=== PATIENT | female | born 1930 | race Caucasian/White ===

== ENCOUNTER → 2016-04-04 | Outpatient (REF) | payer MEDICARE, OTHER ==
[~2016-04-04] MED LIST: ALLO300T; ANEXIA; ASPI325T; BENI20TA11; CALCCHW12; HYDR25TA6; ISRADIPINE; JANUVIA; THERGRAN; TOPROL
== END | disposition home or self-care (01) ==
LOC: M LAB REF 16:30
PROVIDERS: ATTEND Nurse Practitioner Adult Health
DX: I12.9 Hypertensive chronic kidney disease with stage 1 through stage 4 chronic kidney disease, or unspecified chronic kidney disease (principal); D50.9 Iron deficiency anemia, unspecified

== ENCOUNTER → 2016-05-16 | Day surgery (SDC) | payer MEDICARE, OTHER ==
[~2016-05-16] VITALS: Ht 157.5 cm; Wt 74.8 kg
[~2016-05-16] MED LIST changes: +ALLO100T PO; +AMLO5TAB2 PO; +BSS with VANC/TOB/EPI for EYE CASES IR ONE; +CALCCHW19 PO; +CYCLOPENTOLATE 2% OPHTH SOLN XX ONE; +D5W/0.2% SODIUM CHLORIDE 250 ML IV SCH; +ECOT81TA5 PO; +HEALON DUET (HEALON 10MG/ML 0.55ML & HEALON ENDOCOAT 30MG/ML 0.85ML) As Ordered ONE; +HEALON DUET (HEALON 10MG/ML 0.55ML & HEALON ENDOCOAT 30MG/ML 0.85ML) XX ONE; +JANU100T PO; +LIDOCAINE 1% SDV 5 ML VIAL As Ordered ONE; +LIDOCAINE 1% SDV 5 ML VIAL XX ONE; +LIDOCAINE 4% INJ 5 ML AMP OU ONE; +LISI40TAB PO; +METO-207 PO; +MIDAZOLAM INJ 2 MG/2 ML VIAL (J2250) As Ordered ONE; +MOXIFLOXACIN IN BSS 0.25MG/0.25ML INTRACAMERAL INJ (OR EYE ONLY)(J2280) As Ordered ONE; +MOXIFLOXACIN IN BSS 0.25MG/0.25ML INTRACAMERAL INJ (OR EYE ONLY)(J2280) ICAM ONE; +OFLOXACIN 0.3 % (OCUFLOX) OPTH SOL 5ML XX ONE; +PHENYLEPHRINE 2.5% OPHTH SOL 2ML XX ONE; +POVIDONE-IODINE 5% OPHTH PREP SOL 30ML As Ordered ONE; +TRIAMCINOLONE PRES FR 40 MG/ML 1ML(TRIESENCE)(OR EYE ONLY)(J3300 PER 1MG) As Ordered ONE; +TRIAMCINOLONE PRES FR 40 MG/ML 1ML(TRIESENCE)(OR EYE ONLY)(J3300 PER 1MG) IO ONE; +TROPICAMIDE 1% OPHTH SOLN 2 ML XX ONE; +VITA400C29 PO; +fentaNYL 100 MCG/2 ML INJECTION (J3010) As Ordered ONE
[2016-05-16 14:00] VITALS: BP 191/109
--- NOTE | 2016-05-17 05:50 | RO ---
DATE OF PROCEDURE: 05/16/2016 PREPROCEDURE DIAGNOSIS: Cataract of left eye. POSTPROCEDURE DIAGNOSIS: Cataract of left eye. PROCEDURE: Femtosecond laser and phacoemulsification of the intraocular lens with lens implantation left eye. Intraocular lens power used was PCB00, 22 diopter. SURGEON: Micaela Perez MD STOCKROOM CLERK: None. ANESTHESIA: Local IV standby. FINDINGS: Cataract of left eye. COMPLICATIONS: None. DESCRIPTION OF PROCEDURE: The patient was brought to the operating room and laid in supine position. A lid speculum was placed, and patient was brought under the femtosecond laser. After the satisfactory placement of the patient interface, primary incision, secondary incision, and arcuate incisions with lens fragmentation was done without any complication per plan. The patients interface was then removed and lid speculum removed. Patient was placed under the microscope. The eye was prepped and draped in a sterile fashion for ophthalmic surgery. Lid speculum was placed. The secondary incision was opened, and EndoCoat was injected into the anterior chamber. The temporal clear corneal incision was then opened and capsulorrhexis removed, followed by hydrodissection. This was followed by phacoemulsification of the lens within the capsular bag. Cortical material was then aspirated, and Healon was injected into the capsular bag. Intraocular lens was then placed. Excess Healon was aspirated. Wound was hydrated. The lid speculum was removed, and patient was returned to the recovery room in stable condition.
== END | disposition home or self-care (01) ==
LOC: M SDC 10:59
PROVIDERS: ATTEND Ophthalmology
DX: H26.9 Unspecified cataract (principal); I12.9 Hypertensive chronic kidney disease with stage 1 through stage 4 chronic kidney disease, or unspecified chronic kidney disease; N18.3 Chronic kidney disease, stage 3 (moderate); M10.9 Gout, unspecified; D50.9 Iron deficiency anemia, unspecified; R73.01 Impaired fasting glucose; M81.0 Age-related osteoporosis without current pathological fracture; Z87.820 Personal history of traumatic brain injury; Z87.891 Personal history of nicotine dependence; Z79.899 Other long term (current) drug therapy
CPT/HCPCS: 66984; J2250; J2280; J3010; J3300; V2632

== ENCOUNTER → 2016-05-23 | Day surgery (SDC) | payer MEDICARE, OTHER ==
[~2016-05-23] VITALS: Ht 157.5 cm; Wt 75.0 kg
[~2016-05-23] MED LIST changes: +ACET500C PO; +ACETAMINOPHEN 325 MG TAB PO PRN; +AcetaZOLAMIDE 500 MG ER CAP PO ONE; +CYCLOPENTOLATE 2% OPHTH SOLN OD ONE; -CYCLOPENTOLATE 2% OPHTH SOLN XX ONE; +FERR325T3 PO; -HEALON DUET (HEALON 10MG/ML 0.55ML & HEALON ENDOCOAT 30MG/ML 0.85ML) XX ONE; +KETOROLAC 0.5% OPHTH SOLN OD ONE; -LIDOCAINE 1% SDV 5 ML VIAL XX ONE; -MOXIFLOXACIN IN BSS 0.25MG/0.25ML INTRACAMERAL INJ (OR EYE ONLY)(J2280) ICAM ONE; +OFLOXACIN 0.3 % (OCUFLOX) OPTH SOL 5ML OD ONE; -OFLOXACIN 0.3 % (OCUFLOX) OPTH SOL 5ML XX ONE; +PHENYLEPHRINE 2.5% OPHTH SOL 2ML OD ONE; -PHENYLEPHRINE 2.5% OPHTH SOL 2ML XX ONE; +PROPARACAINE 0.5% OPHTH SOL 15ML OD PRN; -TRIAMCINOLONE PRES FR 40 MG/ML 1ML(TRIESENCE)(OR EYE ONLY)(J3300 PER 1MG) IO ONE; +TRIMETHOBENZAMIDE 300 MG CAP PO PRN; +TROPICAMIDE 1% OPHTH SOLN 2 ML OD ONE; -TROPICAMIDE 1% OPHTH SOLN 2 ML XX ONE
[2016-05-23 14:20] VITALS: BP 165/73
--- NOTE | 2016-05-24 10:54 | RO ---
DATE OF PROCEDURE: 05/23/2016 PREPROCEDURE DIAGNOSIS: Cataract of right eye. POSTPROCEDURE DIAGNOSIS: Cataract of right eye. PROCEDURE: Femtosecond laser and phacoemulsification of the intraocular lens with lens implantation right eye. Intraocular lens power used was PCB00, power 22 diopter. SURGEON: Micaela Perez MD SALESPERSON WOMEN'S HATS: None. ANESTHESIA: Local IV standby. FINDINGS: Cataract of right eye. COMPLICATIONS: None. DESCRIPTION OF PROCEDURE: The patient was brought to the operating room and laid in supine position. A lid speculum was placed, and patient was brought under the femtosecond laser. After the satisfactory placement of the patient interface, primary incision, secondary incision, and arcuate incisions with lens fragmentation was done without any complication per plan. The patients interface was then removed and lid speculum removed. Patient was placed under the microscope. The eye was prepped and draped in a sterile fashion for ophthalmic surgery. Lid speculum was placed. The secondary incision was opened, and EndoCoat was injected into the anterior chamber. The temporal clear corneal incision was then opened and capsulorrhexis removed, followed by hydrodissection. This was followed by phacoemulsification of the lens within the capsular bag. Cortical material was then aspirated, and Healon was injected into the capsular bag. Intraocular lens was then placed. Excess Healon was aspirated. Wound was hydrated. The lid speculum was removed, and patient was returned to the recovery room in stable condition.
== END | disposition home or self-care (01) ==
LOC: M SDC 09:54
PROVIDERS: ATTEND Ophthalmology
DX: H26.9 Unspecified cataract (principal); I10 Essential (primary) hypertension; E11.9 Type 2 diabetes mellitus without complications; M10.9 Gout, unspecified; Z86.73 Personal history of transient ischemic attack (TIA), and cerebral infarction without residual deficits; Z87.891 Personal history of nicotine dependence; Z79.899 Other long term (current) drug therapy; Z79.82 Long term (current) use of aspirin
CPT/HCPCS: 66984; J2250; J2280; J3010; J3300; V2632

== ENCOUNTER → 2016-09-05 | Outpatient (REF) | payer MEDICARE, OTHER ==
[~2016-09-05] MED LIST changes: -ACETAMINOPHEN 325 MG TAB PO PRN; -AcetaZOLAMIDE 500 MG ER CAP PO ONE; -BSS with VANC/TOB/EPI for EYE CASES IR ONE; -CYCLOPENTOLATE 2% OPHTH SOLN OD ONE; -D5W/0.2% SODIUM CHLORIDE 250 ML IV SCH; -HEALON DUET (HEALON 10MG/ML 0.55ML & HEALON ENDOCOAT 30MG/ML 0.85ML) As Ordered ONE; -KETOROLAC 0.5% OPHTH SOLN OD ONE; -LIDOCAINE 1% SDV 5 ML VIAL As Ordered ONE; -LIDOCAINE 4% INJ 5 ML AMP OU ONE; -MIDAZOLAM INJ 2 MG/2 ML VIAL (J2250) As Ordered ONE; -MOXIFLOXACIN IN BSS 0.25MG/0.25ML INTRACAMERAL INJ (OR EYE ONLY)(J2280) As Ordered ONE; -OFLOXACIN 0.3 % (OCUFLOX) OPTH SOL 5ML OD ONE; -PHENYLEPHRINE 2.5% OPHTH SOL 2ML OD ONE; -POVIDONE-IODINE 5% OPHTH PREP SOL 30ML As Ordered ONE; -PROPARACAINE 0.5% OPHTH SOL 15ML OD PRN; -TRIAMCINOLONE PRES FR 40 MG/ML 1ML(TRIESENCE)(OR EYE ONLY)(J3300 PER 1MG) As Ordered ONE; -TRIMETHOBENZAMIDE 300 MG CAP PO PRN; -TROPICAMIDE 1% OPHTH SOLN 2 ML OD ONE; -fentaNYL 100 MCG/2 ML INJECTION (J3010) As Ordered ONE
[2016-09-05 20:07] LABS: PERCENT SATURATION 46.3 % (13.2-37.4); URIC ACID 5.9 MG/DL (2.6-6.0)
== END ==
LOC: M LAB REF 17:30
PROVIDERS: ATTEND Nurse Practitioner Adult Health
DX: M10.9 Gout, unspecified (principal); D50.9 Iron deficiency anemia, unspecified; N18.3 Chronic kidney disease, stage 3 (moderate)

== ENCOUNTER → 2016-11-29 | Outpatient (REF) | payer MEDICARE, OTHER ==
[~2016-11-29] MED LIST changes: -METO-207 PO; +METO1TAB7 PO; +VITA-110 PO; -VITA400C29 PO
== END ==
LOC: M LAB REF 12:30
PROVIDERS: ATTEND Nurse Practitioner Adult Health
DX: N18.3 Chronic kidney disease, stage 3 (moderate) (principal)

== ENCOUNTER → 2017-03-06 | Outpatient (REF) | payer MEDICARE, OTHER | LOC: M LAB REF 18:02 | PROVIDERS: ATTEND Nurse Practitioner Adult Health | DX: D50.9 Iron deficiency anemia, unspecified (principal) ==

== ENCOUNTER 2017-04-03 21:31 | Emergency (ER) | payer MEDICARE, OTHER | END 2017-04-03 23:31 | disposition home or self-care (01) | LOC: M ED 21:31 | DX: J34.89 Other specified disorders of nose and nasal sinuses (principal); E11.9 Type 2 diabetes mellitus without complications; Z79.899 Other long term (current) drug therapy; Z79.82 Long term (current) use of aspirin; Z98.890 Other specified postprocedural states; Z86.73 Personal history of transient ischemic attack (TIA), and cerebral infarction without residual deficits | CPT/HCPCS: 99283 ==

== ENCOUNTER 2017-08-16 00:20 | Emergency (ER) | payer MEDICARE, OTHER ==
[2017-08-16] MEDS: TETANUS/DIPHTHERIA TOX ADSORB ADULT 0.5ML SYR/VIAL (90714) IM (01:30)
== END 2017-08-16 02:40 | disposition home or self-care (01) ==
LOC: M ED 00:20
DX: S50.811A Abrasion of right forearm, initial encounter (principal); W19.XXXA Unspecified fall, initial encounter; Y92.89 Other specified places as the place of occurrence of the external cause; I10 Essential (primary) hypertension; Z79.899 Other long term (current) drug therapy; Z79.82 Long term (current) use of aspirin
CPT/HCPCS: 90714

== ENCOUNTER → 2017-09-25 | Outpatient (REF) | payer MEDICARE, OTHER ==
[2017-09-25 18:58] LABS: PHOSPHORUS LEVEL 3.6 MG/DL (2.5-4.9)
== END ==
LOC: M LAB REF 17:10
DX: I12.9 Hypertensive chronic kidney disease with stage 1 through stage 4 chronic kidney disease, or unspecified chronic kidney disease (principal); N18.9 Chronic kidney disease, unspecified
CPT/HCPCS: 84100

== ENCOUNTER → 2018-12-29 | Outpatient (CLI) | payer MEDICARE, OTHER ==
[~2018-12-29] MED LIST changes: -AMLO5TAB2 PO; +AMLO5TAB6 PO; +LISI40TA PO; -LISI40TAB PO
--- NOTE | 2018-12-29 19:30 | REP ---
Duplex extremity venous ultrasound: Left lower extremity. History: Edema and pain. Question left lower extremity DVT. Findings: The deep veins are anechoic and fully compressible from the groin to the popliteal fossa in the left lower extremity. Color flow imaging is homogeneous. Spectral Doppler interrogation demonstrates intact respiratory variation in flow and normal manual augmentation of flow. There is no evidence of deep vein thrombosis. Impression: Negative left lower extremity duplex venous ultrasound. No evidence of deep vein thrombosis. Electronically Signed by Saurabh Weinberg MD 12/29/2018 08:01 P
== END ==
LOC: M RAD 15:47
PROVIDERS: ATTEND Registered Nurse
DX: R60.0 Localized edema (principal); M79.662 Pain in left lower leg

== ENCOUNTER → 2019-01-15 | Outpatient (REF) | payer MEDICARE, OTHER | LOC: M LAB REF 17:20 | PROVIDERS: ATTEND Nurse Practitioner Adult Health | DX: N18.9 Chronic kidney disease, unspecified (principal); D63.1 Anemia in chronic kidney disease ==

== ENCOUNTER 2019-05-02 14:52 | Emergency (ER) | payer MEDICARE, OTHER ==
[~2019-05-02] VITALS: Ht 162.6 cm; Wt 72.7 kg
[2019-05-02] MEDS ORDERED: AMLO2.5T3 (15:19)
--- NOTE | 2019-05-02 15:38 | REP ---
Clinical: Trauma. Fall. Comparison: None . Findings: Age-related atrophy and microvascular ischemic changes are appreciated. The ventricles and sulci are symmetric. Rosa-white differentiation is maintained. There is no evidence for acute intracranial hemorrhage, mass/mass effect, pathology or infarction. No extra-axial fluid collection. Calvarium is intact. Paranasal sinuses and mastoid air cells are clear. There is a 2 cm ovoid density in the subcutaneous tissues overlying the right supraorbital region which may reflect hematoma related to trauma/fall. Impression: Age related atrophy and microvascular ischemic changes. No acute intracranial hemorrhage, infarction, or mass/mass effect. Electronically Signed by Paulie Mares MD 05/02/2019 03:28 P
--- NOTE | 2019-05-02 16:03 | REP ---
Clinical: Trauma. Fall. Technique: AP and lateral views of the right forearm. Findings: No acute fracture or dislocation. No foreign body. Impression: No acute fracture or dislocation. Electronically Signed by Paulie Mares MD 05/02/2019 03:55 P
[2019-05-02] MEDS ORDERED: ACETAMINOPHEN TAB 650MG DOSE (2X325MG) PO ONE (16:30)
--- NOTE | 2019-05-02 16:33 | REP ---
Clinical: Trauma. Fall. Technique: AP, lateral, bilateral oblique and sunrise views of the bilateral knees. Findings: Age-related osteopenia and advanced tricompartmental osteoarthritic degenerative changes are appreciated including osteophytosis, subchondral sclerosis, joint space narrowing, and chondrocalcinosis. Lateral views demonstrate bilateral anterior/prepatellar soft tissue swelling (left greater than right). No suprapatellar effusion noted. No obvious acute fracture or dislocation. Impression: 1. Bilateral anterior swelling (left greater than right). 2. No acute fracture or dislocation appreciated. 3. 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 Electronically Signed by Paulie Mares MD 05/02/2019 04:25 P
[2019-05-02] MEDS ORDERED: METAL LOCK LOOP XX ONE (17:21)
--- NOTE | 2019-05-02 17:42 | REP ---
Clinical: Trauma. Fall. Technique: AP, lateral, bilateral oblique views of the right elbow. Findings: Osseous structures are intact and without acute fracture or dislocation. Anterior and posterior fat pads are in normal position. Lateral view demonstrates posterior swelling along the posterior aspect of the elbow extending along the posterior proximal portion of the forearm. No subcutaneous emphysema or foreign body. Impression: 1. No obvious acute fracture or dislocation. 2. Posterior swelling. Electronically Signed by Paulie Mares MD 05/02/2019 05:33 P
[2019-05-02] MEDS ORDERED: METOPROLOL SUCC (TopROL XL) 50MG **XL** TAB PO ONE (17:45)
[2019-05-02 19:35] LABS: BASO % 0.3 % (0.0-1.0); EOS # 0.2 10^3/uL (0.0-0.5); EOS % 1.9 % (0.0-3.0); HEMOGLOBIN 9.4 g/dl (12.0-15.5); LYMPH # 1.8 10^3/uL (1.5-5.0); LYMPH % 14.4 % (24.0-44.0); MEAN CORPUSCULAR HEMOGLOBIN 31.2 pg (27.0-33.0); MEAN CORPUSCULAR HGB CONC 31.3 g/dl (32.0-36.5); MEAN CORPUSCULAR VOLUME 99.7 fl (80.0-96.0); MONO # 0.9 10^3/uL (0.0-0.8); MONO % 6.8 % (0.0-5.0); NEUTROPHILS # 9.7 10^3/uL (1.5-8.5); NEUTROPHILS % 76.1 % (36.0-66.0); PLATELET COUNT, AUTOMATED 351 10^3/uL (150-450); RED BLOOD COUNT 3.01 10^6/uL (4.00-5.40); WHITE BLOOD COUNT 12.8 10^3/uL (4.0-10.0)
[2019-05-02 20:00] LABS: BLOOD UREA NITROGEN 30 MG/DL (7-18); CALCIUM LEVEL 9.2 MG/DL (8.8-10.2); CARBON DIOXIDE LEVEL 26 MEQ/L (21-32); CHLORIDE LEVEL 108 MEQ/L (98-107); CPK CREATINE PHOSPHOKINASE 68 U/L (26-192); CREATININE FOR GFR 1.17 MG/DL (0.55-1.30); GLOMERULAR FILTRATION RATE 46.4 (>32); GLUCOSE, FASTING 115 MG/DL (70-100); MB/CK RELATIVE INDEX 1.47 (< OR =4); POTASSIUM SERUM 4.7 MEQ/L (3.5-5.1); SODIUM LEVEL 141 MEQ/L (136-145); TROPONIN I < 0.02 NG/ML (< 0.10)
--- NOTE | 2019-05-02 20:01 | REP ---
Clinical: Hypertension. Technique: PA and lateral. Comparison: 03/09/2016. Findings: There is a mass in the anterior left upper lobe best identified on lateral radiograph and partially obscured by the left hilum on the AP view. This represents a new finding and is concerning for malignancy. Mediastinum and cardiac silhouette appear grossly normal. Lung casas demonstrate chronic interstitial changes. No effusion. No pneumothorax. Skeletal structures demonstrate osteopenia and degenerative changes. Impression: Suspected 3.7 cm mass in the anterior left upper lobe. Contrast enhanced chest CT is recommended for further investigation. Electronically Signed by Paulie Mares MD 05/02/2019 07:52 P
[2019-05-02] MEDS ORDERED: NS 1,000 ML IV ONE (20:15)
[2019-05-02] MEDS ORDERED: LABETALOL HCL 100 MG/20 ML VIAL IV STA (20:27)
[2019-05-02] MEDS ORDERED: ISOVUE-370 76% 100ML VIAL (Q9967) As Ordered ONE (20:53)
[2019-05-02 21:48] VITALS: BP 213/87
--- NOTE | 2019-05-02 21:51 | REPVR ---
PROCEDURE INFORMATION: Exam: CT Chest With Contrast Exam date and time: 05/02/2019 9:11 PM Age: 89 years old Clinical indication: Mass, lump, or swelling in the chest; Additional info: Jeancarlos mass TECHNIQUE: Imaging protocol: Computed tomography of the chest with intravenous contrast. 3D rendering: MIP and/or 3D reconstructed images were created by the technologist. Radiation optimization: All CT scans at this facility use at least one of these dose optimization techniques: automated exposure control; mA and/or kV adjustment per patient size (includes targeted exams where dose is matched to clinical indication); or iterative reconstruction. Contrast material: ISOVUE 370; Contrast volume: 75 ml; Contrast route: IV; COMPARISON: CR Chest, 2 view PA, Lat 2019-05-02 19:31 FINDINGS: Lungs: Fairly well-circumscribed left anterior upper lobe 3.5 x 3.3 cm mass with punctate areas of cystic degeneration and calcification. Pleural space: Multiple pleural tags. Neoplasm until proven otherwise. Heart: Moderate coronary artery disease. Aorta: Mild aortic atherosclerosis. Lymph nodes: No adenopathy . Bones/joints: ORIF proximal chronic left humeral fracture with plate and screws. Soft tissues: Unremarkable. IMPRESSION: 1. Fairly well-circumscribed left anterior upper lobe 3.5 x 3.3 cm mass with punctate areas of cystic degeneration and calcification. Multiple pleural tags. Neoplasm until proven otherwise. 2. No adenopathy . COMMENT: As per Fleischner Society guidelines for follow-up and management of pulmonary nodules: Recommend initial follow-up chest CT at 3, 9 and 24 months. Consider contrast enhanced chest CT, PET scan and/or biopsy as clinically warranted. Electronically signed by: Maldonado Garcia On 05/02/2019 21:50:41 PM
[2019-05-02] MEDS ORDERED: AMLO5TAB6 PO (22:37)
[2019-05-02 22:46] VITALS: BP 150/69
--- NOTE | 2019-05-03 05:48 | ECGEPIP ---
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
== END 2019-05-02 23:01 | disposition home or self-care (01) ==
LOC: M ED 14:52
DX: S05.11XA Contusion of eyeball and orbital tissues, right eye, initial encounter (principal); S80.211A Abrasion, right knee, initial encounter; S80.212A Abrasion, left knee, initial encounter; S50.11XA Contusion of right forearm, initial encounter; W00.0XXA Fall on same level due to ice and snow, initial encounter; Y92.410 Unspecified street and highway as the place of occurrence of the external cause; M17.0 Bilateral primary osteoarthritis of knee; M25.461 Effusion, right knee; M25.462 Effusion, left knee; R91.8 Other nonspecific abnormal finding of lung field; I10 Essential (primary) hypertension; E11.9 Type 2 diabetes mellitus without complications; I63.9 Cerebral infarction, unspecified; Z79.82 Long term (current) use of aspirin; Z79.899 Other long term (current) drug therapy
CPT/HCPCS: 70450; 71046; 71260; 73080; 73090; 73564; 80048; 81001; 82550; 82553; 84484; 85025; 93005; 96361; 96374; 99284; Q9967

== ENCOUNTER → 2019-09-29 | Outpatient (CLI) | payer MEDICARE, OTHER ==
[~2019-09-29] MED LIST changes: +AMLO1TAB24 PO; +AMLO2.5T3; -AMLO5TAB6 PO
--- NOTE | 2019-09-30 10:04 | REP ---
REASON FOR EXAM: Followup left lung mass. Prior chest CT 05/02/2019 was reviewed. That examination showed a 3.5 cm sized mass in the anterior segment of the left upper lobe. There are no prior PET/CT for comparison. After the intravenous administration of 9.5 millicuries of FDG-18, triplane whole body PET/CT was performed from the skull base to the mid thigh. The left upper lobe mass is hypermetabolic with SUV values up to 12.2 maximally. There is a slight left pleural effusion. Within the superficial lobe of the right parotid gland, there is a small hypermetabolic focus with maximal SUV valves up to 7.4. No other abnormal hypermetabolic activity is seen in the neck, chest, abdomen or pelvis. IMPRESSION: 1. The known mass in the left lung upper lobe is abnormally hypermetabolic as described above. 2. There is a small focus of abnormal hypermetabolic activity seen in the superficial lobe of the right parotid gland as described above. The exact etiology of this is uncertain. Whether it represents a metastatic parotid gland lymph node or represents inflammatory or even neoplastic disease from other etiologies cannot be stated by this exam. Contrast-enhanced neck CT is recommended for further evaluation along with clinical correlation and followup. 3. There is a small left pleural effusion possibly a malignant effusion. Electronically Signed by Gilberto Gerber DO 09/30/2019 12:54 P
== END ==
LOC: M PLARAD 12:06
PROVIDERS: ATTEND Internal Medicine Pulmonary Disease
DX: R91.8 Other nonspecific abnormal finding of lung field (principal)
CPT/HCPCS: 78815; A9552

== ENCOUNTER → 2019-10-05 | Outpatient (REF) | payer MEDICARE, OTHER | LOC: M LAB REF 17:14 | PROVIDERS: ATTEND Nurse Practitioner Adult Health | DX: D64.9 Anemia, unspecified (principal) ==

== ENCOUNTER 2019-10-06 08:18 | Outpatient (CLI) | payer MEDICARE, OTHER ==
[~2019-10-06] VITALS: Ht 162.6 cm; Wt 73.0 kg
[~2019-10-06 08:18] MED LIST changes: +ACETAMINOPHEN TAB 650MG DOSE (2X325MG) PO SCH; +diphenhydrAMINE 25MG CAP PO SCH
[2019-10-06 09:15] VITALS: BP 136/63
[2019-10-06 09:30] VITALS: BP 106/51
[2019-10-06 11:09] VITALS: BP 119/56
== END 2019-10-06 13:25 | disposition home or self-care (01) ==
LOC: M INFU 08:18
PROVIDERS: ATTEND Nurse Practitioner Adult Health
DX: D64.9 Anemia, unspecified (principal)
CPT/HCPCS: 36430; P9016

== ENCOUNTER → 2019-11-17 | Outpatient (REF) | payer MEDICARE, OTHER ==
[~2019-11-17] MED LIST changes: -ACETAMINOPHEN TAB 650MG DOSE (2X325MG) PO SCH; -diphenhydrAMINE 25MG CAP PO SCH
== END ==
LOC: M LAB REF 19:12
PROVIDERS: ATTEND Nurse Practitioner Adult Health
DX: D50.9 Iron deficiency anemia, unspecified (principal)

== ENCOUNTER 2019-11-19 08:59 | Outpatient (CLI) | payer MEDICARE, OTHER ==
[~2019-11-19] VITALS: Ht 162.6 cm; Wt 73.0 kg
[~2019-11-19 08:59] MED LIST changes: +ACETAMINOPHEN TAB 650MG DOSE (2X325MG) PO SCH; +diphenhydrAMINE 25MG CAP PO SCH
[2019-11-19] MEDS ORDERED: ACETAMINOPHEN TAB 650MG DOSE (2X325MG) As Ordered ONE (09:46)
[2019-11-19 09:52] VITALS: BP 139/62
[2019-11-19 10:30] VITALS: BP 112/55
[2019-11-19 11:30] VITALS: BP 133/57
[2019-11-19 12:15] VITALS: BP 118/56
[2019-11-19 13:15] VITALS: BP 137/62
[2019-11-19 13:30] VITALS: BP 136/68
== END 2019-11-19 13:45 | disposition home or self-care (01) ==
LOC: M INFU 08:59
PROVIDERS: ATTEND Nurse Practitioner Adult Health
DX: D64.9 Anemia, unspecified (principal)
CPT/HCPCS: 36430; P9016

== ENCOUNTER 2020-03-08 17:59 | Emergency (ER) | payer MEDICARE, OTHER ==
[~2020-03-08] VITALS: Ht 157.5 cm; Wt 61.9 kg
[~2020-03-08 17:59] MED LIST changes: -ACETAMINOPHEN TAB 650MG DOSE (2X325MG) PO SCH; -diphenhydrAMINE 25MG CAP PO SCH
[2020-03-08] MEDS ORDERED: CENT1TAB PO (18:18)
[2020-03-08] MEDS ORDERED: MIRT1TAB15 (18:18)
[2020-03-08] MEDS ORDERED: SENO8.6T5 PO (18:18)
[2020-03-08] MEDS ORDERED: ZOLP5TAB (18:18)
[2020-03-08] MEDS ORDERED: B-12100010 PO (18:18)
[2020-03-08] MEDS ORDERED: BUSP10TA (18:18)
[2020-03-08] MEDS ORDERED: ATOR1TAB21 (18:18)
[2020-03-08 19:26] LABS: VENOUS BASE EXCESS 3.2 (-2.0-2.0); VENOUS HCO3 28.4 MEQ/L (23.0-27.0); VENOUS O2 SATURATION 94.7 % (60.0-80.0); VENOUS PARTIAL PRESSURE CO2 46.1 mmHg (38.0-50.0); VENOUS PARTIAL PRESSURE O2 77.2 mmHg (30.0-50.0); VENOUS PH 7.407 UNITS (7.330-7.430); VENOUS STANDARD HCO3 27.3 MEQ/L; VENOUS TOTAL CO2 29.8 MEQ/L (24.0-28.0)
[2020-03-08 19:30] LABS: HEMATOCRIT 28.4 % (36.0-47.0); HEMOGLOBIN 8.5 g/dl (12.0-15.5); MEAN CORPUSCULAR HEMOGLOBIN 28.2 pg (27.0-33.0); MEAN CORPUSCULAR HGB CONC 29.9 g/dl (32.0-36.5); MEAN CORPUSCULAR VOLUME 94.4 fl (80.0-96.0); PLATELET COUNT, AUTOMATED 321 10^3/uL (150-450); RED BLOOD COUNT 3.01 10^6/uL (4.00-5.40); WHITE BLOOD COUNT 11.3 10^3/uL (4.0-10.0)
--- NOTE | 2020-03-08 19:38 | REP ---
INDICATION: hemoptsis. COMPARISON: 05/02/2019 PA and lateral latest prior TECHNIQUE: The technique utilized in obtaining the radiograph has magnified the cardiac silhouette and attenuated the interstitial markings. FINDINGS: Once again, there is evidence of the left parahilar mass. The appearance of this has increased allowing for the differences in the technical parameters between the exam. Since the last examination, elevation of the diaphragmatic surface of the left lung has developed. There is no significant change in appearance of the right lung. There is no significant change in appearance of the imaged osseous structures. IMPRESSION: Left parahilar mass as described above. Prior PET-CT of 09/29/2019 showed the mass to be hypermetabolic. <Electronically signed by Gilberto Gerber > 03/08/201933
[2020-03-08 19:45] LABS: INR 1.03; PROTHROMBIN TIME 13.7 SECONDS (12.5-14.3)
[2020-03-08 19:49] LABS: CREATININE FOR GFR 1.16 MG/DL (0.55-1.30); GLOMERULAR FILTRATION RATE 46.8 (>32)
[2020-03-08 20:45] VITALS: BP 170/75
== END 2020-03-08 21:16 | disposition home or self-care (01) ==
LOC: M ED 17:59
DX: C34.90 Malignant neoplasm of unspecified part of unspecified bronchus or lung (principal); R04.2 Hemoptysis; R91.8 Other nonspecific abnormal finding of lung field; Z79.82 Long term (current) use of aspirin; Z79.899 Other long term (current) drug therapy; E11.9 Type 2 diabetes mellitus without complications; I10 Essential (primary) hypertension; Z86.73 Personal history of transient ischemic attack (TIA), and cerebral infarction without residual deficits; Z87.891 Personal history of nicotine dependence